=== PATIENT | male | born 1975 | race Caucasian/White ===

== ENCOUNTER 2019-11-13 12:16 | Inpatient (IN) | payer SELFPAY ==
[~2019-11-13] VITALS: Ht 172.7 cm; Wt 69.4 kg
[2019-11-13 13:20] LABS: Basophils # (auto) 0 uL; Basophils % (auto) 0.5 % (0.0-2.0); Eosinophils # (auto) 0 uL; Hematocrit 43.2 % (41.0-53.0); Hemoglobin 15.4 g/dL (13.5-17.5); Lymphocytes # (auto) 0.3 uL; Mean Corpuscular Hemoglobin 33.1 pg (28.0-32.0); Mean Corpuscular Hgb Conc. 35.6 g/dL (32.0-36.0); Monocytes # (auto) 0.5 uL; Monocytes % (auto) 10.5 % (0.0-12.0); Neutrophils # (auto) 3.8 uL; Nucleated Red Blood Cells % 0.3 %; Platelet Count (auto) 93 10^3/uL (140-450); Red Blood Cells 4.65 10^6/uL (4.5-5.90); Red Cell Distribution Width 12.8 % (11.8-14.3); White Blood Cell 4.6 10^3/uL (4.4-10.8)
[2019-11-13 13:33] LABS: Albumin 3.3 g/dL (3.4-5.0); Calcium 8.9 mg/dL (8.5-10.1)
[2019-11-13 13:36] LABS: BUN/Creatinine Ratio 8.8; Bilirubin, Total 1.1 mg/dL (0.2-1.0); Total Protein 8.2 g/dL (6.4-8.2)
[2019-11-13 13:47] LABS: Potassium 4.6 mmol/L (3.5-5.1)
[2019-11-13 14:59] LABS: Urine Bacteria NONE SEEN /hpf (None Seen); Urine Blood 1+ /uL (Negative); Urine Mucus FEW (None Seen); Urine Specific Gravity 1.026 (1.001-1.035); Urine WBC 2 /hpf (0 - 3)
[2019-11-13 15:00] LABS: Amphetamine Screen, Urine NEGATIVE (NEGATIVE); Barbiturate Scree,Urine NEGATIVE (NEGATIVE); Benzodiazephine Screen, Urine NEGATIVE (NEGATIVE); Cannabinoid Screen, Urine POSITIVE (NEGATIVE); Cocaine Screen, Urine NEGATIVE (NEGATIVE); Opiate Scree,Urine NEGATIVE (NEGATIVE)
[2019-11-13 15:08] LABS: Phencyclidine Screen, Urine NEGATIVE (NEGATIVE)
[2019-11-13] MEDS ORDERED: NEOMYCIN-BACITRACIN-POLYM UNITDOSE PKG TOP OINT TOP ONE (17:15)
[2019-11-13] MEDS ORDERED: ONDANSETRON HCL 4 MG/2 ML VIAL IV ONE (17:15)
[2019-11-13] MEDS ORDERED: LIDOCAINE 2%HCL (LOCAL ANESTH.) INJ 20ML MDV ID ONE (17:15)
[2019-11-13] MEDS ORDERED: IOHEXOL 300 MG/ML 100ML BOTTLE IJ ONE (17:28)
[2019-11-13 17:43] LABS: Magnesium 2.2 mg/dL (1.6-2.6)
[2019-11-13] MEDS ORDERED: FOLIC ACID 1 MG, MULTIPLE VITAMIN 10 ML, MAGNESIUM SULF SDV 50% 8 MEQ, THIAMINE INJ 100... INJ ONE ×5 (18:15)
[2019-11-13] MEDS ORDERED: LORazepam 2MG/ML-1ML VIAL IV ONE (18:45)
[2019-11-13] MEDS ORDERED: ACETAMINOPHEN 325 MG TAB PO ONE (22:00)
[2019-11-14] MEDS ORDERED: ACETAMINOPHEN 325 MG TAB PO ONE (04:15)
[2019-11-14] MEDS ORDERED: MORPHINE SULFATE 4 MG/ML SYR/VIAL IV PRN (04:30)
[2019-11-14] MEDS: SODIUM CHLORIDE 0.9% 1,000 ML IV SCH ×3 (05:09→15:11)
[2019-11-14] MEDS ORDERED: AZITHROMYCIN 500MG/ 250ML 250 ML IV ONE (05:15)
[2019-11-14 06:25] LABS: Basophils # (auto) 0 uL (0-0.2); Basophils % (auto) 0.4 % (0.0-2.0); Eosinophils # (auto) 0 uL (0-0.8); Hematocrit 38.1 % (41.0-53.0); Hemoglobin 13.5 g/dL (13.5-17.5); Lymphocytes # (auto) 0.4 uL (0.4-5.4); Mean Corpuscular Hgb Conc. 35.4 g/dL (32.0-36.0); Mean Corpuscular Volume 93.1 fL (80.0-100.0); Monocytes # (auto) 0.4 uL (0-1.3); Monocytes % (auto) 8.6 % (0.0-12.0); Neutrophils # (auto) 4.2 uL (1.6-8.6); Nucleated Red Blood Cells % 0.1 %; Platelet Count (auto) 69 10^3/uL (140-450); Red Blood Cells 4.09 10^6/uL (4.5-5.90); Red Cell Distribution Width 12.7 % (11.8-14.3); White Blood Cell 5.1 10^3/uL (4.4-10.8)
[2019-11-14 06:58] LABS: Calcium 7.9 mg/dL (8.5-10.1)
[2019-11-14 07:01] LABS: BUN/Creatinine Ratio 11.8
[2019-11-14 07:05] LABS: Potassium 2.9 mmol/L (3.5-5.1)
[2019-11-14] MEDS: POTASSIUM CHL 20MEQ/100ML 100 ML IV SCH ×3 (08:16→13:10)
[2019-11-14] MEDS: LORazepam 2MG/ML-1ML VIAL IV PRN ×6 (08:24→21:54)
[2019-11-14] MEDS ORDERED: cefTRIAXone 1GM/50ML D5W 50 ML IV SCH (10:00)
[2019-11-14] MEDS ORDERED: FOLIC ACID 1 MG, MULTIPLE VITAMIN 10 ML, MAGNESIUM SULF SDV 50% 8 MEQ, THIAMINE INJ 100... INJ SCH ×10 (12:00→12:45)
[2019-11-14] MEDS ORDERED: HALOPERIDOL LACTATE 5 MG/ML INJ VIAL IM ONE (12:15)
[2019-11-14] MEDS ORDERED: LORazepam 2MG/ML-1ML VIAL IV PRN ×2 (12:45→13:15)
[2019-11-14] MEDS ORDERED: LORazepam 2MG/ML-1ML VIAL IV SCH (13:00)
[2019-11-14] MEDS ORDERED: LORazepam 2MG/ML-1ML VIAL IV ONE (13:15)
[2019-11-14] MEDS ORDERED: THIAMINE 100mg/ml INJ (200mg/2ml VIAL) IV ONE (13:45)
[2019-11-14 15:04] LABS: Calcium 8.3 mg/dL (8.5-10.1); Potassium 3.8 mmol/L (3.5-5.1)
[2019-11-14] MEDS ORDERED: VANCOMYCIN PER PHARMACY 0 MG IV SCH (15:15)
[2019-11-14 15:58] LABS: Hepatitis B Surface Antigen Negative (Negative)
[2019-11-14 16:00] LABS: Hepatitis A Ab IgM Negative; Hepatitis B Core IgM Negative
[2019-11-14] MEDS ORDERED: FUROSEMIDE 40 MG/4 ML VIAL IV ONE (16:00)
[2019-11-14] MEDS: PIPERACILLIN-TAZO 4.5GM 100 ML IV SCH ×2 (16:18→21:54)
[2019-11-14] MEDS ORDERED: ACETAMINOPHEN 650 MG RECT SUPP PR ONE ×2 (16:27→16:30)
--- NOTE | 2019-11-14 16:56 | NUR ---
Pt Arrived on Unit Pt arrived on unit from ED. Pt is a/ox1-2; going through withdraws. Pt is visibly agitated. Girlfriend and pt's friend is currently at bedside. Sitter is present in room, salas catheter is present. Safety measures maintained with call light within reach, bed in lowest position and side rails up. Will continue to monitor.
[2019-11-14 17:15] VITALS: BP 140/78
--- NOTE | 2019-11-14 17:27 | NUR ---
Admission Due to pt's ALOC and withdraws, unable to obtain adequate information regarding history. Will endorse to NOC shift.
[2019-11-14] MEDS: chlordiazePOXIDE HCL 25 MG CAP PO SCH (17:52)
[2019-11-14 19:14] LABS: Creatinine, Urine 11.6 mg/dL (30.0-125.0)
--- NOTE | 2019-11-14 19:50 | NUR ---
Opening Shift Note Assumed care of patient is alert and orientated to self going through withdraws. Patient is seen pulling on iv line and salas. Educated patient to not pull on lines and reorientated patient. No S/S of distress/SOB or pain. sitter is at bedside. bed in low position and call light within reach. Instructed on POC and to call for assist PRN, will continue to monitor for changes Q1hr and PRN.
[2019-11-14] MEDS: VANCOMYCIN 1GM/250ML 250 ML IV SCH (20:35)
[2019-11-14 22:00] VITALS: BP 136/78
[2019-11-15] MEDS: chlordiazePOXIDE HCL 25 MG CAP PO SCH ×4 (00:53→17:56)
[2019-11-15] MEDS: LORazepam 2MG/ML-1ML VIAL IV PRN ×3 (00:58→06:13)
[2019-11-15 05:00] VITALS: BP 152/76
--- NOTE | 2019-11-15 05:00 | NUR ---
102.4 temperature. cooling measures initiated. 0606- rechecked temperature 98.2 temperature
[2019-11-15] MEDS: ACETAMINOPHEN 325 MG TAB PO PRN ×2 (05:11→11:20)
[2019-11-15] MEDS: VANCOMYCIN 1GM/250ML 250 ML IV SCH ×2 (05:38→16:10)
[2019-11-15] MEDS: PIPERACILLIN-TAZO 4.5GM 100 ML IV SCH ×3 (05:38→22:17)
--- NOTE | 2019-11-15 06:55 | NUR ---
REPORT GIVEN TO DAYSHIFT RN. PATIENT SHOWS NO SIGNS OF DISTRESS SOB OR PAIN. BED IN LOW POSITION CALL LIGHT WITHIN REACH. SITTER AT BEDSIDE.
--- NOTE | 2019-11-15 06:55 | NUR ---
REPORT GIVEN TO MATTHEW JARAMILLO
--- NOTE | 2019-11-15 07:19 | NUR ---
Opening Note Assumed pt care from NOC nurse. Pt is a/ox1-2; visibly going through withdraws and slightly agitated. Mittens are currently in place for pt safety and sitter is present in room. Fajardo catheter is present, draining to gravity and free of kinks. Discussed POC with pt. Safety measures maintained with call light within reach, bed in lowest position and side rails up. Will continue to monitor.
--- NOTE | 2019-11-15 08:49 | NUR ---
Elevated Temperature Reported Temp of 101.8. PRN Tylenol not available at this time. Provided cooling measures with ice packs under armpits, cool, damp cloth on forehead and temperature in room lowered. Will reassess and continue to monitor.
[2019-11-15 09:00] VITALS: BP 143/76
[2019-11-15 09:20] LABS: Basophils # (auto) 0 10 ^3/uL (0-0.2); Basophils % (auto) 0.6 % (0.0-2.0); Eosinophils # (auto) 0 10 ^3/uL (0-0.8); Hematocrit 45.2 % (41.0-53.0); Hemoglobin 15.5 g/dL (13.5-17.5); Lymphocytes # (auto) 0.7 10 ^3/uL (0.4-5.4); Lymphocytes % (auto) 13.3 % (10.0-50.0); Mean Corpuscular Hemoglobin 32.2 pg (28.0-32.0); Mean Corpuscular Hgb Conc. 34.2 g/dL (32.0-36.0); Mean Corpuscular Volume 94.1 fL (80.0-100.0); Monocytes # (auto) 0.5 10 ^3/uL (0-1.3); Monocytes % (auto) 8.5 % (0.0-12.0); Neutrophils # (auto) 4.2 10 ^3/uL (1.6-8.6); Neutrophils % (auto) 77.6 % (37.0-80.0); Nucleated Red Blood Cells % 0.1 %; Platelet Count (auto) 84 10^3/uL (140-450); Red Cell Distribution Width 12.5 % (11.8-14.3); White Blood Cell 5.4 10^3/uL (4.4-10.8)
[2019-11-15 09:39] LABS: Calcium 8.3 mg/dL (8.5-10.1)
[2019-11-15 09:43] LABS: Bilirubin, Total 0.9 mg/dL (0.2-1.0); Total Protein 7.4 g/dL (6.4-8.2)
[2019-11-15 09:45] LABS: Potassium 2.9 mmol/L (3.5-5.1)
[2019-11-15] MEDS: THIAMINE 100mg/ml INJ (200mg/2ml VIAL) IV SCH (09:55)
--- NOTE | 2019-11-15 10:01 | NUR ---
Critical Lab Value Reported Potassium of 2.9 reported. Will notify MD of critical lab value and continue to monitor. Addendum: 11/15/19 at 1035 by JULIANA CURIEL RN RN Dr Wiggins made aware. Will continue to monitor.
[2019-11-15] MEDS ORDERED: POTASSIUM EFFERVESENT TAB 25 MEQ PO ONE (11:00)
[2019-11-15] MEDS ORDERED: ACETAMINOPHEN 325 MG TAB PO ONE (11:15)
--- NOTE | 2019-11-15 12:47 | NUR ---
Dr Wiggins at Bedside MD to see pt. MD requests that we withhold haldol and ativan for pt at this time. No new orders at this time. Will continue to monitor.
[2019-11-15 13:00] VITALS: BP 114/71
[2019-11-15] MEDS ORDERED: POTASSIUM CHL 20 Meq TABLET PO ONE (13:00)
--- NOTE | 2019-11-15 14:10 | NUR ---
[facility] notified. Per staff, will send up antibiotic.
[2019-11-15] MEDS ORDERED: levoFLOXacin 250 MG TAB PO ONE (16:30)
[2019-11-15 17:00] VITALS: BP 125/80
--- NOTE | 2019-11-15 19:30 | NUR ---
Opening Shift Note Assumed care of patient, awake and alert. No S/S of distress/SOB. Sitter at bedside. Instructed on POC and to call for assist PRN, will continue to monitor for changes Q1hr and PRN.
[2019-11-15 22:15] VITALS: BP 113/61
[2019-11-16 02:33] LABS: BUN/Creatinine Ratio 15.9; Calcium 8.7 mg/dL (8.5-10.1); Potassium 3.7 mmol/L (3.5-5.1)
[2019-11-16] MEDS: VANCOMYCIN 1GM/250ML 250 ML IV SCH ×3 (03:18→17:41)
[2019-11-16 05:23] VITALS: BP 106/69
[2019-11-16] MEDS: PIPERACILLIN-TAZO 4.5GM 100 ML IV SCH ×3 (06:09→22:00)
[2019-11-16] MEDS: chlordiazePOXIDE HCL 25 MG CAP PO SCH ×4 (06:10→17:41)
[2019-11-16 06:17] LABS: Basophils # (auto) 0 10 ^3/uL (0-0.2); Basophils % (auto) 0.7 % (0.0-2.0); Eosinophils # (auto) 0 10 ^3/uL (0-0.8); Eosinophils % (auto) 0.4 % (0.0-7.0); Hematocrit 43.2 % (41.0-53.0); Hemoglobin 15.3 g/dL (13.5-17.5); Lymphocytes # (auto) 0.8 10 ^3/uL (0.4-5.4); Lymphocytes % (auto) 16.6 % (10.0-50.0); Mean Corpuscular Hemoglobin 33.1 pg (28.0-32.0); Mean Corpuscular Hgb Conc. 35.5 g/dL (32.0-36.0); Mean Corpuscular Volume 93.2 fL (80.0-100.0); Monocytes # (auto) 0.6 10 ^3/uL (0-1.3); Neutrophils # (auto) 3.2 10 ^3/uL (1.6-8.6); Neutrophils % (auto) 69.3 % (37.0-80.0); Nucleated Red Blood Cells % 0.2 %; Platelet Count (auto) 90 10^3/uL (140-450); Red Blood Cells 4.63 10^6/uL (4.5-5.90); Red Cell Distribution Width 12.7 % (11.8-14.3); White Blood Cell 4.7 10^3/uL (4.4-10.8)
[2019-11-16 06:19] LABS: Calcium 8.4 mg/dL (8.5-10.1); Potassium 3.4 mmol/L (3.5-5.1)
[2019-11-16 06:21] LABS: BUN/Creatinine Ratio 16.2
--- NOTE | 2019-11-16 07:23 | NUR ---
Opening Note Assumed pt care form NOC nurse. Pt is a/ox3-4 with no s/s of distress or SOB. Mild periods of confusion noted at times. Pt is currently sitting upright in bed with no complaints at this time. Sitter is present at bedside. Fajardo is present, free of kinks and draining to gravity. Discussed POC with pt, pt verbalized understanding. Safety measures maintained with call light within reach, bed in lowest position and side rails up. Will continue to monitor for changes.
[2019-11-16 09:00] VITALS: BP 109/72
[2019-11-16] MEDS: THIAMINE 100mg/ml INJ (200mg/2ml VIAL) IV SCH (10:00)
[2019-11-16] MEDS: levoFLOXacin 250 MG TAB PO SCH (10:00)
--- NOTE | 2019-11-16 12:01 | NUR ---
Salas Catheter D/C'ed Salas catheter removed due to pt being able to ambulate without difficulty and shows no s/s of ALOC. Pt expressed that he feels he can void on his own. Catheter removed without issue. Pt provided urinal and I requested that pt call when need assistance ot restroom; pt verbalized understanding. 500 mL of urine present in salas after d/c. Addendum: 11/16/19 at 1258 by JULIANA CURIEL RN RN Pt able to ambulate to bathroom and urinate. Will continue to monitor.
--- NOTE | 2019-11-16 12:48 | NUR ---
Dr Wiggins at Bedside MD to see pt. Discussed POC with pt and pt's girlfriend. Orders given, read back and verified. Will continue to monitor.
--- NOTE | 2019-11-16 12:48 | NUR ---
Per terri Barksdale MD to d/c Vanco IV antibiotics if MRSA comes back negative. Will send specimen to lab.
[2019-11-16 12:52] VITALS: BP 111/74
[2019-11-16] MEDS: ACETAMINOPHEN 325 MG TAB PO PRN (15:24)
--- NOTE | 2019-11-16 17:05 | NUR ---
AMA to Smoke Pt expressed strong desire to go down stairs to smoke. Discussed with pt the harms of smoking and provided pt with information with education on smoking and his diagnosis. Pt aware of the risks of smoking and his current condition. I read the pt that AMA to smoke form; pt willingly signed the form. Pt able to ambulate without difficulty. Pt currently off unit to smoke. Pt aware to be back within 30 minutes. Will continue to monitor. Addendum: 11/16/19 at 1708 by JULIANA CURIEL RN RN Signed AMA to smoke placed in chart. Addendum: 11/16/19 at 1722 by JULIANA CURIEL RN RN Pt Back on unit
--- NOTE | 2019-11-16 19:30 | NUR ---
Opening Shift Note Assumed care of patient, awake and alert. No S/S of distress/SOB or pain. Sitter at bedside. Instructed on POC and to call for assist PRN, will continue to monitor for changes Q1hr and PRN.
[2019-11-16] MEDS ORDERED: VANCOMYCIN PER PHARMACY 0 MG IV SCH (19:45)
[2019-11-16 21:59] VITALS: BP 112/77
[2019-11-17] VITALS: BP 110/79
[2019-11-17] MEDS: chlordiazePOXIDE HCL 25 MG CAP PO SCH ×4 (00:21→17:37)
[2019-11-17] MEDS: VANCOMYCIN 1GM/250ML 250 ML IV SCH ×2 (02:18→10:38)
[2019-11-17 04:10] VITALS: BP 106/79
[2019-11-17 05:59] LABS: BUN/Creatinine Ratio 12.5; Calcium 8.6 mg/dL (8.5-10.1); Potassium 3.4 mmol/L (3.5-5.1)
[2019-11-17] MEDS: PIPERACILLIN-TAZO 4.5GM 100 ML IV SCH (06:00)
[2019-11-17 06:03] LABS: Albumin 2.7 g/dL (3.4-5.0)
[2019-11-17 09:00] VITALS: BP 114/66
[2019-11-17] MEDS ORDERED: POTASSIUM EFFERVESENT TAB 25 MEQ PO ONE (09:00)
[2019-11-17] MEDS ORDERED: POTASSIUM CHL 20 Meq TABLET PO ONE ×2 (09:00→17:30)
[2019-11-17] MEDS: levoFLOXacin 250 MG TAB PO SCH (10:38)
[2019-11-17] MEDS: THIAMINE 100mg/ml INJ (200mg/2ml VIAL) IV SCH (10:38)
[2019-11-17] MEDS: MORPHINE SULF INJ 2 MG/ML SYRINGE 1ML IV PRN (10:56)
[2019-11-17 13:00] VITALS: BP 120/84
[2019-11-17] MEDS ORDERED: NICOTINE 21MG/24 HR TOPICAL PATCH TD ONE (16:15)
[2019-11-17 16:24] VITALS: BP 121/79
[2019-11-17] MEDS ORDERED: FUROSEMIDE 20 MG/2 ML VIAL IV ONE (17:30)
--- NOTE | 2019-11-17 17:30 | NUR ---
assessment Patient is a 44 year old male who is confused. 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 Per patients bedside nurse patient lives home with family and functions with assistance. I have called patients sig other Marla [phone] and left a message for her to return my call. Waiting second miller back now. Addendum: 11/17/19 at 1732 by Asya MAURICE Amended: Links added.
--- NOTE | 2019-11-17 19:30 | NUR ---
Opening Shift Note Assumed care of patient, awake and alert. No S/S of distress/SOB or pain. Instructed on POC and to call for assist PRN, will continue to monitor for changes Q1hr and PRN.
[2019-11-17] MEDS: ACETAMINOPHEN 325 MG TAB PO PRN (21:45)
[2019-11-17 22:00] VITALS: BP 138/75
[2019-11-18] MEDS: chlordiazePOXIDE HCL 25 MG CAP PO SCH ×2 (00:06→06:13)
[2019-11-18 06:06] VITALS: BP 127/79
[2019-11-18 06:24] LABS: Calcium 9.4 mg/dL (8.5-10.1); Potassium 4.3 mmol/L (3.5-5.1)
[2019-11-18] MEDS: MORPHINE SULF INJ 2 MG/ML SYRINGE 1ML IV PRN ×3 (06:25→18:45)
[2019-11-18] MEDS: ONDANSETRON HCL 4 MG/2 ML VIAL IV PRN ×2 (06:25→10:45)
[2019-11-18 06:27] LABS: BUN/Creatinine Ratio 9.1
[2019-11-18] MEDS ORDERED: SODIUM CHLORIDE 0.9% 1,000 ML IV ONE (08:45)
[2019-11-18 09:00] VITALS: BP 115/78
[2019-11-18] MEDS ORDERED: SODIUM CHLORIDE 0.9% 500 ML IV ONE (09:00)
[2019-11-18] MEDS: levoFLOXacin 250 MG TAB PO SCH (10:17)
[2019-11-18] MEDS: NICOTINE 21MG/24 HR TOPICAL PATCH TD SCH (10:19)
[2019-11-18] MEDS: THIAMINE 100mg/ml INJ (200mg/2ml VIAL) IV SCH (10:20)
[2019-11-18 12:39] LABS: Albumin 2.6 g/dL (3.4-5.0); BUN/Creatinine Ratio 10.6; Potassium 4.4 mmol/L (3.5-5.1)
[2019-11-18 12:41] LABS: Bilirubin, Total 0.9 mg/dL (0.2-1.0); Total Protein 7.1 g/dL (6.4-8.2)
[2019-11-18 13:21] VITALS: BP 129/75
[2019-11-18 13:32] LABS: Hematocrit 41.6 % (41.0-53.0); Hemoglobin 14.3 g/dL (13.5-17.5); Mean Corpuscular Hemoglobin 32.6 pg (28.0-32.0); Mean Corpuscular Hgb Conc. 34.3 g/dL (32.0-36.0); Mean Corpuscular Volume 94.9 fL (80.0-100.0); Platelet Count (auto) 202 10^3/uL (140-450); Red Blood Cells 4.38 10^6/uL (4.5-5.90); Red Cell Distribution Width 13.2 % (11.8-14.3); White Blood Cell 7.4 10^3/uL (4.4-10.8)
[2019-11-18 13:37] LABS: Band Neutrophils % (manual) 0; Basophils % (manual) 0 (0.0-2.0); Blast Cells 0; Metamyelocytes % 0; Myelocytes % 0; Promyelocytes % 0; Reactive Lymphocytes 0
[2019-11-18 14:00] LABS: Eosinophils % (manual) 1 (0-7); Lymphocytes % (manual) 15 (10.0-50.0); Monocytes % (manual) 16 (0-12)
--- NOTE | 2019-11-18 15:25 | NUR ---
NUTRITION ASSESSMENT NOTES Please refer to link notes of nutrition screen form filed under the intervention section of the plan of care for further details. Est. Needs: 1700 kcal to 1950 kcal (25-30 kcal/kgBW), 55 gms to 69 gms pro (0.8-1.0 gms/kgBW). Will continue to monitor pertinent labs and reassess nutrient needs prn Thank you. Addendum: 11/18/19 at [address] Amended: Links added.
[2019-11-18 17:00] VITALS: BP 127/72
[2019-11-18] MEDS: PANTOPRAZOLE 40 MG TAB PO SCH (17:13)
[2019-11-18 19:11] LABS: Albumin 2.9 g/dL (3.4-5.0); Calcium 9.5 mg/dL (8.5-10.1); Potassium 4.5 mmol/L (3.5-5.1)
[2019-11-18 19:15] LABS: BUN/Creatinine Ratio 9.6; Bilirubin, Total 1.1 mg/dL (0.2-1.0)
--- NOTE | 2019-11-18 19:15 | NUR ---
ASSUMED CARE, PT. AWAKE, NO C/O PAIN, NO SOB.
[2019-11-18 19:39] LABS: Protein, Urine 38.1 mg/dL (0.0-11.9)
[2019-11-18 19:44] LABS: Urine Bacteria NONE SEEN /hpf (None Seen); Urine Blood 1+ /uL (Negative); Urine Specific Gravity 1.009 (1.001-1.035); Urine WBC 2 /hpf (0 - 3)
[2019-11-18 22:00] VITALS: BP 108/76
[2019-11-19] MEDS: MORPHINE SULF INJ 2 MG/ML SYRINGE 1ML IV PRN ×4 (02:50→20:28)
--- NOTE | 2019-11-19 02:50 | NUR ---
pt. c/o generalized pain, 06/23, morphine 2mg. iv given s ordered.
--- NOTE | 2019-11-19 03:32 | NUR ---
no c/o pain at this time.
[2019-11-19 05:30] VITALS: BP 137/81
[2019-11-19 07:16] LABS: INR 1.05 (0.9-1.15)
[2019-11-19 07:20] LABS: Amylase 168 U/L (25-115); Lipase 1000 U/L (73-393)
[2019-11-19 09:00] VITALS: BP 133/85
[2019-11-19] MEDS: levoFLOXacin 250 MG TAB PO SCH (09:45)
[2019-11-19] MEDS: PANTOPRAZOLE 40 MG TAB PO SCH (09:46)
[2019-11-19] MEDS: THIAMINE 100mg/ml INJ (200mg/2ml VIAL) IV SCH (09:47)
[2019-11-19] MEDS: NICOTINE 21MG/24 HR TOPICAL PATCH TD SCH (09:55)
[2019-11-19 10:26] LABS: Albumin 2.6 g/dL (3.4-5.0); Calcium 8.8 mg/dL (8.5-10.1); Potassium 4.5 mmol/L (3.5-5.1)
[2019-11-19 10:30] LABS: BUN/Creatinine Ratio 10.3; Total Protein 7.1 g/dL (6.4-8.2)
[2019-11-19 13:00] VITALS: BP 137/83
--- NOTE | 2019-11-19 16:43 | NUR ---
PAIN MEDICATION REQUEST PATIENT REQUESTED PAIN MEDICATION AT PAIN SCALE OF 0-10/8. MORPHINE 2MG/ML WOULD NOT BE AVAILABLE FOR ADMINISTRATION FOR ANOTHER 2 HOURS FROM CURRENT TIME. ACETAMINOPHEN 325MG/2 TABS IS AVAILABLE AND PATIENT ACCEPTED PAIN MEDICATION RELIEF AT THE LOWER RELIEF SCALE.
[2019-11-19] MEDS: ACETAMINOPHEN 325 MG TAB PO PRN (16:47)
[2019-11-19 17:00] VITALS: BP 133/69
--- NOTE | 2019-11-19 19:00 | NUR ---
Opening Shift Note Assumed care of patient, awake and alert. No S/S of distress/SOB, patient states that he has pain from his sciatic nerve down his left leg. Reports a pain of 7/10, will give pain medications PRN as due, will continue to monitor. Instructed on POC and to call for assist PRN, will continue to monitor for changes Q1hr and PRN. Pt in lowest possible position with bed rails up x2 and call light within reach.
[2019-11-19 20:00] VITALS: BP 132/84
[2019-11-19 21:00] VITALS: BP_SYST 123; BP_SYST 132; BP_DIAS 78; BP_DIAS 84
[2019-11-20] MEDS: MORPHINE SULF INJ 2 MG/ML SYRINGE 1ML IV PRN ×3 (00:34→10:24)
[2019-11-20 04:30] VITALS: BP 114/66
[2019-11-20 07:35] LABS: Albumin 2.5 g/dL (3.4-5.0); Calcium 9.1 mg/dL (8.5-10.1); Potassium 4.4 mmol/L (3.5-5.1)
[2019-11-20 07:40] LABS: BUN/Creatinine Ratio 11.5; Bilirubin, Total 0.9 mg/dL (0.2-1.0); Total Protein 7.6 g/dL (6.4-8.2)
[2019-11-20 08:00] VITALS: BP 121/79
[2019-11-20 09:00] VITALS: BP 120/81
[2019-11-20] MEDS ORDERED: THIAMINE HCL 100 MG TAB PO SCH (10:00)
[2019-11-20] MEDS ORDERED: FOLIC ACID 1 MG TAB PO SCH (10:00)
[2019-11-20] MEDS: PANTOPRAZOLE 40 MG TAB PO SCH (10:26)
[2019-11-20] MEDS: levoFLOXacin 250 MG TAB PO SCH (10:26)
[2019-11-20] MEDS ORDERED: DOXY-286 PO (10:31)
[2019-11-20] MEDS: NICOTINE 21MG/24 HR TOPICAL PATCH TD SCH (10:39)
[2019-11-20 10:49] VITALS: BP 114/66
--- NOTE | 2019-11-20 13:45 | NUR ---
Discharge instructions given as ordered. Encourage to follow up with PMD as instructed. All questions and concerns addressed. Patient verbalized understanding. Medication reconciliation form completed and copy given to patient. IV removed with catheter intact, pressure dressing applied. Patient taken to vehicle via wheelchair with all personal belongings, accompanied by staff and family member. No distress noted at time of departure. Sutures intact to above right eyebrow. Area clean, dry and intact with no redness, swelling or drainage. Area open to air.
== END 2019-11-20 13:45 | disposition home or self-care (01) | DRG 720 ==
LOC: EDBD 12:16 → ER 12:20 → TELE 12:21 → TELE-CENTR 11-14 16:50 → CENTRAL 11-19 10:10
PROVIDERS: ADMIT Hospitalist; ATTEND Internal Medicine Nephrology
DX: A41.9 Sepsis, unspecified organism (principal); N17.0 Acute kidney failure with tubular necrosis; K85.90 Acute pancreatitis without necrosis or infection, unspecified; E22.2 Syndrome of inappropriate secretion of antidiuretic hormone; J18.9 Pneumonia, unspecified organism; K70.10 Alcoholic hepatitis without ascites; K76.0 Fatty (change of) liver, not elsewhere classified; F10.239 Alcohol dependence with withdrawal, unspecified; E44.1 Mild protein-calorie malnutrition; E87.6 Hypokalemia; E86.0 Dehydration; F12.90 Cannabis use, unspecified, uncomplicated; F17.210 Nicotine dependence, cigarettes, uncomplicated; R73.9 Hyperglycemia, unspecified; R80.9 Proteinuria, unspecified; I10 Essential (primary) hypertension; S01.111A Laceration without foreign body of right eyelid and periocular area, initial encounter; X58.XXXA Exposure to other specified factors, initial encounter; Y93.89 Activity, other specified; Y92.89 Other specified places as the place of occurrence of the external cause; Y99.8 Other external cause status
CPT/HCPCS: 12013; 36415; 70450; 71045; 71250; 74177; 76775; 80048; 80053; 80061; 80202; 80307; 81001; 82150; 82570; 82607; 83036; 83605; 83690; 83735; 83930; 83935; 84156; 84300; 84443; 84550; 85007; 85025; 85027; 85610; 86703; 86705; 86709; 86803; 87040; 87070; 87081; 87086; 87205; 87340; 87804; 96361; 96365; 96375; G0378; J0696; J2405; J2543; J3480

== ENCOUNTER → 2019-12-01 | Outpatient (CLI) | payer SELFPAY ==
[~2019-12-01] MED LIST: DOXY-286 PO
[2019-12-01 08:06] LABS: Albumin 3.5 g/dL (3.4-5.0); BUN/Creatinine Ratio 9.8; Calcium 10.2 mg/dL (8.5-10.1); Potassium 4.5 mmol/L (3.5-5.1)
[2019-12-01 08:08] LABS: Bilirubin, Total 0.5 mg/dL (0.2-1.0); Total Protein 8.6 g/dL (6.4-8.2)
== END | disposition home or self-care (01) ==
LOC: LAB 07:09
PROVIDERS: ATTEND Internal Medicine
DX: N17.0 Acute kidney failure with tubular necrosis (principal); J18.9 Pneumonia, unspecified organism
CPT/HCPCS: 36415; 80053

== ENCOUNTER → 2019-12-13 | Outpatient (CLI) | payer MEDICAID ==
[2019-12-13 08:14] LABS: Albumin 3.6 g/dL (3.4-5.0); Calcium 9.4 mg/dL (8.5-10.1); Potassium 4.1 mmol/L (3.5-5.1)
[2019-12-13 08:19] LABS: BUN/Creatinine Ratio 6.6; Bilirubin, Total 0.4 mg/dL (0.2-1.0)
== END | disposition home or self-care (01) ==
LOC: LAB 07:06
PROVIDERS: ATTEND Internal Medicine
DX: N18.2 Chronic kidney disease, stage 2 (mild) (principal); R73.03 Prediabetes
CPT/HCPCS: 36415; 80053; 82150; 83690

== ENCOUNTER → 2020-10-17 | Outpatient (CLI) | payer MEDICAID ==
[2020-10-17 09:39] LABS: Neutrophils # (auto) 4.5 10 ^3/uL (1.6-8.6)
[2020-10-17 09:41] LABS: Basophils # (auto) 0.2 10 ^3/uL (0-0.2); Basophils % (auto) 2.1 % (0.0-2.0); Eosinophils # (auto) 0.4 10 ^3/uL (0-0.8); Hematocrit 47.9 % (41.0-53.0); Hemoglobin 16.6 g/dL (13.5-17.5); Lymphocytes # (auto) 1.8 10 ^3/uL (0.4-5.4); Lymphocytes % (auto) 24.4 % (10.0-50.0); Mean Corpuscular Hemoglobin 33.6 pg (28.0-32.0); Mean Corpuscular Hgb Conc. 34.7 g/dL (32.0-36.0); Monocytes # (auto) 0.6 10 ^3/uL (0-1.3); Monocytes % (auto) 8.5 % (0.0-12.0); Nucleated Red Blood Cells % 0.2 %; Platelet Count (auto) 233 10^3/uL (140-450); Red Blood Cells 4.93 10^6/uL (4.5-5.90); Red Cell Distribution Width 14.7 % (11.8-14.3); White Blood Cell 7.5 10^3/uL (4.4-10.8)
[2020-10-17 10:08] LABS: Urine Bacteria NONE SEEN /hpf (None Seen); Urine Blood Negative /uL (Negative); Urine Specific Gravity 1.011 (1.001-1.035); Urine WBC 1 /hpf (0 - 3)
[2020-10-17 10:18] LABS: Potassium 4.6 mmol/L (3.5-5.1)
[2020-10-17 10:21] LABS: Amphetamine Screen, Urine NEGATIVE (NEGATIVE); Cannabinoid Screen, Urine POSITIVE (NEGATIVE)
[2020-10-17 10:29] LABS: Albumin 4.1 g/dL (3.4-5.0); BUN/Creatinine Ratio 9.7; Bilirubin, Total 0.8 mg/dL (0.2-1.0); Calcium 9.6 mg/dL (8.5-10.1); Total Protein 8.3 g/dL (6.4-8.2)
[2020-10-17 10:30] LABS: Barbiturate Scree,Urine NEGATIVE (NEGATIVE); Benzodiazephine Screen, Urine NEGATIVE (NEGATIVE); Cocaine Screen, Urine NEGATIVE (NEGATIVE); Opiate Scree,Urine NEGATIVE (NEGATIVE); Phencyclidine Screen, Urine NEGATIVE (NEGATIVE)
== END | disposition home or self-care (01) ==
LOC: LAB 09:12
PROVIDERS: ATTEND Internal Medicine
DX: K76.0 Fatty (change of) liver, not elsewhere classified (principal); F10.230 Alcohol dependence with withdrawal, uncomplicated; R73.03 Prediabetes
CPT/HCPCS: 36415; 80053; 80307; 81001; 83036; 84443; 85025

== ENCOUNTER → 2020-12-14 | Outpatient (CLI) | payer MEDICAID ==
[2020-12-14 08:50] LABS: Potassium 3.6 mmol/L (3.5-5.1)
[2020-12-14 08:52] LABS: Amphetamine Screen, Urine NEGATIVE (NEGATIVE); Barbiturate Scree,Urine NEGATIVE (NEGATIVE); Basophils # (auto) 0.1 10 ^3/uL (0-0.2); Cannabinoid Screen, Urine POSITIVE (NEGATIVE); Cocaine Screen, Urine NEGATIVE (NEGATIVE); Eosinophils # (auto) 0.1 10 ^3/uL (0-0.8); Hemoglobin 17.2 g/dL (13.5-17.5); Nucleated Red Blood Cells % 0.2 %; Red Blood Cells 5.05 10^6/uL (4.5-5.90)
[2020-12-14 09:00] LABS: Basophils % (auto) 1.7 % (0.0-2.0); Benzodiazephine Screen, Urine NEGATIVE (NEGATIVE); Eosinophils % (auto) 2.2 % (0.0-7.0); Hematocrit 47.8 % (41.0-53.0); Lymphocytes # (auto) 2.1 10 ^3/uL (0.4-5.4); Lymphocytes % (auto) 32.5 % (10.0-50.0); Mean Corpuscular Hemoglobin 34.1 pg (28.0-32.0); Mean Corpuscular Volume 94.7 fL (80.0-100.0); Monocytes # (auto) 0.5 10 ^3/uL (0-1.3); Neutrophils # (auto) 3.6 10 ^3/uL (1.6-8.6); Neutrophils % (auto) 55.6 % (37.0-80.0); Opiate Scree,Urine NEGATIVE (NEGATIVE); Phencyclidine Screen, Urine NEGATIVE (NEGATIVE); Platelet Count (auto) 156 10^3/uL (140-450); White Blood Cell 6.4 10^3/uL (4.4-10.8)
[2020-12-14 09:01] LABS: Albumin 3.7 g/dL (3.4-5.0); BUN/Creatinine Ratio 4.4; Calcium 9.1 mg/dL (8.5-10.1)
== END | disposition home or self-care (01) ==
LOC: LAB 07:49
PROVIDERS: ATTEND Internal Medicine
DX: F10.20 Alcohol dependence, uncomplicated (principal)
CPT/HCPCS: 36415; 80053; 80307; 82150; 83690; 85025

== ENCOUNTER → 2022-04-01 | Outpatient (CLI) | payer MEDICAID ==
[2022-04-01 13:56] LABS: Albumin 4.3 g/dL (3.4-5.0); Anion Gap 10 (5-15); Calcium 9.5 mg/dL (8.5-10.1); Carbon Dioxide 21 mmol/L (21-32); Chloride 105 mmol/L (98-107); Potassium 3.9 mmol/L (3.5-5.1); Sodium 136 mmol/L (136-145)
[2022-04-01 14:02] LABS: Alanine Aminotransferase 39 U/L (16-61); Alkaline Phosphatase 115 U/L (45-117); Aspartate Aminotransferase 26 U/L (15-37); BUN/Creatinine Ratio 11.8; Bilirubin, Total 0.8 mg/dL (0.2-1.0); Blood Urea Nitrogen 11 mg/dL (7-18); Cholesterol 248 mg/dL (< 200); GFR African American 112 mL/min; GFR Non-African American 93 mL/min; Glucose 118 mg/dL (74-106); HDL Cholesterol 38 mg/dL (40-59); Total Protein 8.3 g/dL (6.4-8.2); Triglycerides 433 mg/dL (< 150); Urine Bacteria NONE SEEN /hpf (None Seen); Urine Blood Negative /uL (Negative); Urine Specific Gravity 1.005 (1.001-1.035); Urine WBC <1 /hpf (0 - 3)
[2022-04-01 14:05] LABS: Folate (Folic Acid) 20.01 ng/mL (5.38-24)
[2022-04-01 14:07] LABS: Neutrophils % (auto) 63.5 % (37.0-80.0); White Blood Cell 11.5 10^3/uL (4.4-10.8)
[2022-04-01 14:08] LABS: Basophils # (auto) 0 10 ^3/uL (0-0.2); Basophils % (auto) 0.3 % (0.0-2.0); Eosinophils # (auto) 0.7 10 ^3/uL (0-0.8); Eosinophils % (auto) 5.7 % (0.0-7.0); Lymphocytes # (auto) 2.8 10 ^3/uL (0.4-5.4); Lymphocytes % (auto) 24.7 % (10.0-50.0); Monocytes # (auto) 0.7 10 ^3/uL (0-1.3); Monocytes % (auto) 5.8 % (0.0-12.0); Neutrophils # (auto) 7.3 10 ^3/uL (1.6-8.6); Nucleated Red Blood Cells % 0.2 %; Red Blood Cells 6.13 10^6/uL (4.5-5.90)
[2022-04-01 14:09] LABS: Hematocrit 55.3 % (41.0-53.0); Hemoglobin 18.1 g/dL (13.5-17.5); Mean Corpuscular Hemoglobin 29.5 pg (28.0-32.0); Mean Corpuscular Hgb Conc. 32.8 g/dL (32.0-36.0); Mean Corpuscular Volume 90.2 fL (80.0-100.0); Red Cell Distribution Width 14.9 % (11.8-14.3)
== END | disposition home or self-care (01) ==
LOC: LAB 13:02
PROVIDERS: ATTEND Internal Medicine
DX: R53.83 Other fatigue (principal); J44.9 Chronic obstructive pulmonary disease, unspecified; K76.0 Fatty (change of) liver, not elsewhere classified
CPT/HCPCS: 36415; 80053; 80061; 81001; 82607; 82746; 84443; 85025

== ENCOUNTER → 2022-04-08 | Outpatient (CLI) | payer MEDICAID | END | disposition home or self-care (01) | LOC: XYW 14:39 | PROVIDERS: ATTEND Internal Medicine | DX: R53.83 Other fatigue (principal); R53.1 Weakness | CPT/HCPCS: 93306 ==

== ENCOUNTER → 2022-05-23 | Outpatient (CLI) | payer MEDICAID ==
[2022-05-23 13:20] LABS: Basophils # (auto) 0.2 10 ^3/uL (0-0.2); Basophils % (auto) 1.3 % (0.0-2.0); Eosinophils # (auto) 0.4 10 ^3/uL (0-0.8); Eosinophils % (auto) 3.1 % (0.0-7.0); Hematocrit 51.3 % (41.0-53.0); Hemoglobin 17.2 g/dL (13.5-17.5); Lymphocytes # (auto) 3.2 10 ^3/uL (0.4-5.4); Lymphocytes % (auto) 24.8 % (10.0-50.0); Mean Corpuscular Hemoglobin 30.3 pg (28.0-32.0); Mean Corpuscular Hgb Conc. 33.5 g/dL (32.0-36.0); Mean Corpuscular Volume 90.3 fL (80.0-100.0); Monocytes # (auto) 0.7 10 ^3/uL (0-1.3); Monocytes % (auto) 5.4 % (0.0-12.0); Neutrophils # (auto) 8.4 10 ^3/uL (1.6-8.6); Neutrophils % (auto) 65.4 % (37.0-80.0); Red Blood Cells 5.68 10^6/uL (4.5-5.90); Red Cell Distribution Width 15.9 % (11.8-14.3); White Blood Cell 12.9 10^3/uL (4.4-10.8)
[2022-05-23 13:47] LABS: Cholesterol 289 mg/dL (< 200); HDL Cholesterol 45 mg/dL (40-59); Triglycerides 676 mg/dL (< 150)
== END | disposition home or self-care (01) ==
LOC: LAB 12:57
PROVIDERS: ATTEND Internal Medicine
DX: K76.0 Fatty (change of) liver, not elsewhere classified (principal); E78.5 Hyperlipidemia, unspecified
CPT/HCPCS: 36415; 80061; 84403; 85025

== ENCOUNTER → 2022-09-12 | Outpatient (CLI) | payer MEDICAID ==
[2022-09-12 07:26] LABS: Basophils # (auto) 0.1 10 ^3/uL (0-0.2); Basophils % (auto) 0.9 % (0.0-2.0); Eosinophils # (auto) 0.2 10 ^3/uL (0-0.8); Monocytes # (auto) 0.9 10 ^3/uL (0-1.3); Neutrophils # (auto) 5.4 10 ^3/uL (1.6-8.6); Nucleated Red Blood Cells % 0.1 %; White Blood Cell 9.8 10^3/uL (4.4-10.8)
[2022-09-12 07:30] LABS: Eosinophils % (auto) 1.9 % (0.0-7.0); Lymphocytes # (auto) 3.2 10 ^3/uL (0.4-5.4); Lymphocytes % (auto) 32.9 % (10.0-50.0); Mean Corpuscular Hemoglobin 34.4 pg (28.0-32.0); Mean Corpuscular Hgb Conc. 35.5 g/dL (32.0-36.0); Mean Corpuscular Volume 96.9 fL (80.0-100.0); Monocytes % (auto) 8.8 % (0.0-12.0); Neutrophils % (auto) 55.5 % (37.0-80.0); Red Blood Cells 5.81 10^6/uL (4.5-5.90); Red Cell Distribution Width 14.1 % (11.8-14.3)
[2022-09-12 07:32] LABS: Hematocrit 56.3 % (41.0-53.0)
[2022-09-12 07:51] LABS: Cholesterol 211 mg/dL (< 200); Triglycerides 216 mg/dL (< 150)
[2022-09-12 07:53] LABS: HDL Cholesterol 88 mg/dL (40-59); LDL Cholesterol 110 mg/dL (< 100)
== END | disposition home or self-care (01) ==
LOC: LAB 06:39
PROVIDERS: ATTEND Internal Medicine
DX: J44.9 Chronic obstructive pulmonary disease, unspecified (principal); E78.5 Hyperlipidemia, unspecified
CPT/HCPCS: 36415; 80061; 85025

== ENCOUNTER 2022-09-24 12:18 | Emergency (ER) | payer MEDICAID ==
[~2022-09-24] VITALS: Ht 172.7 cm; Wt 79.5 kg
[2022-09-24] MEDS ORDERED: LORazepam 2MG/ML-1ML VIAL IV ONE (12:45)
[2022-09-24] MEDS ORDERED: SODIUM CHLORIDE 0.9% 1,000 ML IV ONE (12:45)
[2022-09-24 13:26] LABS: Basophils # (auto) 0.1 10 ^3/uL (0-0.2); Basophils % (auto) 1.4 % (0.0-2.0); Eosinophils # (auto) 0 10 ^3/uL (0-0.8); Eosinophils % (auto) 0.5 % (0.0-7.0); Hematocrit 50.3 % (41.0-53.0); Hemoglobin 17.8 g/dL (13.5-17.5); Lymphocytes # (auto) 1.5 10 ^3/uL (0.4-5.4); Lymphocytes % (auto) 20.2 % (10.0-50.0); Mean Corpuscular Hemoglobin 34.1 pg (28.0-32.0); Mean Corpuscular Hgb Conc. 35.3 g/dL (32.0-36.0); Mean Corpuscular Volume 96.8 fL (80.0-100.0); Monocytes # (auto) 0.5 10 ^3/uL (0-1.3); Monocytes % (auto) 7.1 % (0.0-12.0); Neutrophils # (auto) 5.4 10 ^3/uL (1.6-8.6); Neutrophils % (auto) 70.8 % (37.0-80.0); Nucleated Red Blood Cells % 0.1 %; Red Cell Distribution Width 13.9 % (11.8-14.3); White Blood Cell 7.6 10^3/uL (4.4-10.8)
[2022-09-24 13:40] LABS: Potassium 4.6 mmol/L (3.5-5.1)
[2022-09-24 14:03] LABS: Albumin 4.3 g/dL (3.4-5.0); BUN/Creatinine Ratio 7.9; Bilirubin, Total 0.4 mg/dL (0.2-1.0); Total Protein 7.6 g/dL (6.4-8.2)
[2022-09-24] MEDS ORDERED: CHL25C PO (15:11)
[2022-09-24 15:36] LABS: Amphetamine Screen, Urine NEGATIVE (NEGATIVE); Barbiturate Scree,Urine NEGATIVE (NEGATIVE); Benzodiazephine Screen, Urine NEGATIVE (NEGATIVE); Cocaine Screen, Urine NEGATIVE (NEGATIVE); Opiate Scree,Urine NEGATIVE (NEGATIVE); Phencyclidine Screen, Urine NEGATIVE (NEGATIVE)
[2022-09-24 15:40] LABS: Cannabinoid Screen, Urine POSITIVE (NEGATIVE)
[2022-09-24 16:00] VITALS: BP 103/54
[2022-09-24 16:04] LABS: Urine Bacteria NONE SEEN /hpf (None Seen); Urine Blood Negative /uL (Negative); Urine Specific Gravity 1.003 (1.001-1.035); Urine WBC <1 /hpf (0 - 3)
== END 2022-09-24 16:44 | disposition home or self-care (01) ==
LOC: ER 12:18
DX: F10.239 Alcohol dependence with withdrawal, unspecified (principal); R42 Dizziness and giddiness; Z03.89 Encounter for observation for other suspected diseases and conditions ruled out; Y90.8 Blood alcohol level of 240 mg/100 ml or more
CPT/HCPCS: 36415; 80053; 80307; 80320; 81001; 83690; 85025; 93005; 96361; 96374; 99285; J2060; J7030

== ENCOUNTER → 2023-02-11 | Outpatient (CLI) | payer MEDICAID ==
[~2023-02-11] MED LIST changes: +CHL25C PO
[2023-02-11 07:15] LABS: Basophils # (auto) 0.1 10 ^3/uL (0-0.2); Eosinophils # (auto) 0.6 10 ^3/uL (0-0.8); Eosinophils % (auto) 7.7 % (0.0-7.0); Hematocrit 45.9 % (41.0-53.0); Lymphocytes # (auto) 2.9 10 ^3/uL (0.4-5.4); Lymphocytes % (auto) 37.2 % (10.0-50.0); Mean Corpuscular Hemoglobin 32.2 pg (28.0-32.0); Mean Corpuscular Hgb Conc. 34.9 g/dL (32.0-36.0); Mean Corpuscular Volume 92.1 fL (80.0-100.0); Monocytes # (auto) 0.5 10 ^3/uL (0-1.3); Monocytes % (auto) 5.8 % (0.0-12.0); Neutrophils # (auto) 3.7 10 ^3/uL (1.6-8.6); Neutrophils % (auto) 48.3 % (37.0-80.0); Nucleated Red Blood Cells % 0.5 %; Red Blood Cells 4.98 10^6/uL (4.5-5.90); Red Cell Distribution Width 14.6 % (11.8-14.3); White Blood Cell 7.7 10^3/uL (4.4-10.8)
[2023-02-11 07:37] LABS: Albumin 3.9 g/dL (3.4-5.0); Calcium 8.4 mg/dL (8.5-10.1)
[2023-02-11 07:41] LABS: Bilirubin, Total 0.4 mg/dL (0.2-1.0); Total Protein 7.5 g/dL (6.4-8.2)
[2023-02-11 07:42] LABS: Urine Bacteria NONE SEEN /hpf (None Seen); Urine Blood Negative /uL (Negative); Urine Specific Gravity 1.008 (1.001-1.035); Urine WBC <1 /hpf (0 - 3)
[2023-02-11 12:58] LABS: BUN/Creatinine Ratio 9.8 (10.0-20.0)
== END | disposition home or self-care (01) ==
LOC: LAB 06:31
PROVIDERS: ATTEND Internal Medicine
DX: E78.5 Hyperlipidemia, unspecified (principal); R10.9 Unspecified abdominal pain; F17.200 Nicotine dependence, unspecified, uncomplicated
CPT/HCPCS: 36415; 80053; 81001; 82550; 83036; 85025; 85652

== ENCOUNTER → 2024-01-13 | Outpatient (CLI) | payer MEDICAID ==
[2024-01-13 07:54] LABS: Triglycerides 217 mg/dL (< 150)
[2024-01-13 07:55] LABS: LDL Cholesterol 127 mg/dL (< 100)
[2024-01-13 07:56] LABS: Cholesterol 206 mg/dL (< 200); HDL Cholesterol 37 mg/dL (40-59)
== END | disposition home or self-care (01) ==
LOC: LAB 06:03
PROVIDERS: ATTEND Internal Medicine
DX: E78.5 Hyperlipidemia, unspecified (principal)
CPT/HCPCS: 36415; 80061

== ENCOUNTER → 2024-04-11 | Outpatient (CLI) | payer MEDICAID ==
[2024-04-11 07:33] LABS: Triglycerides 407 mg/dL (< 150)
[2024-04-11 07:34] LABS: Cholesterol 222 mg/dL (< 200); HDL Cholesterol 33 mg/dL (40-59)
== END | disposition home or self-care (01) ==
LOC: LAB 06:05
PROVIDERS: ATTEND Internal Medicine
DX: Z12.11 Encounter for screening for malignant neoplasm of colon (principal); E78.5 Hyperlipidemia, unspecified
CPT/HCPCS: 36415; 80061

== ENCOUNTER → 2024-07-28 | Outpatient (CLI) | payer MEDICAID ==
[2024-07-28 09:44] LABS: Erythrocyte Sedimentation Rate 19 mm/hr (0-20)
[2024-07-29 08:06] LABS: Complement C3 147 mg/dL (82-167); Rheumatoid Arthritis Factor <10.0 IU/mL (<14.0)
[2024-07-29 10:07] LABS: Anti-Nuclear Antibody Direct Negative (Negative); Anti-dsDNA Antibody 1 IU/mL (0-9); Antiscleroderma-70 Antibody <0.2 AI (0.0-0.9); RNP Antibody <0.2 AI (0.0-0.9); Sjogren's Anti-SS-A Antibody <0.2 AI (0.0-0.9); Sjogren's Anti-SS-B Antibody <0.2 AI (0.0-0.9); Smith Antibody <0.2 AI (0.0-0.9)
[2024-07-29 10:45] LABS: Thyroid Peroxidase (TPO) Ab <9 IU/mL (0-34)
== END | disposition home or self-care (01) ==
LOC: LAB 06:03
PROVIDERS: ATTEND Internal Medicine
DX: K76.0 Fatty (change of) liver, not elsewhere classified (principal); I70.90 Unspecified atherosclerosis
CPT/HCPCS: 36415; 84550; 85652; 86160; 86225; 86235; 86376; 86431

== ENCOUNTER 2025-04-25 06:03 | Outpatient (CLI) | payer MEDICAID ==
[2025-04-25 07:00] LABS: Triglycerides 425 mg/dL (< 150)
[2025-04-25 07:04] LABS: Cholesterol 235 mg/dL (< 200); HDL Cholesterol 30 mg/dL (40-59)
== END 2025-04-25 17:00 | disposition home or self-care (01) ==
LOC: LAB 06:03
PROVIDERS: ATTEND Internal Medicine
DX: E78.5 Hyperlipidemia, unspecified (principal); R73.03 Prediabetes; Z12.11 Encounter for screening for malignant neoplasm of colon; Z00.00 Encounter for general adult medical examination without abnormal findings
CPT/HCPCS: 36415; 80061; 82306; 82607; 83036

== ENCOUNTER 2025-07-20 06:04 | Outpatient (CLI) | payer MEDICAID ==
[2025-07-20 08:03] LABS: Calcium 9.9 mg/dL (8.7-10.4)
[2025-07-20 08:12] LABS: Cholesterol 213.0 mg/dL (< 200); HDL Cholesterol 34.0 mg/dL (40-59); Triglycerides 186.0 mg/dL (< 150)
== END 2025-07-20 17:00 | disposition home or self-care (01) ==
LOC: LAB 06:04
PROVIDERS: ATTEND Internal Medicine
DX: E78.5 Hyperlipidemia, unspecified (principal); R73.03 Prediabetes; Z12.11 Encounter for screening for malignant neoplasm of colon
CPT/HCPCS: 36415; 80061; 82306; 82310; 83970

== ENCOUNTER 2025-07-26 08:21 | Outpatient (CLI) | payer MEDICAID ==
[2025-07-26 09:32] LABS: Urine Protein, UAD Negative (Negative)
== END 2025-07-26 17:00 | disposition home or self-care (01) ==
LOC: LAB 08:21
PROVIDERS: ATTEND Internal Medicine
DX: E78.5 Hyperlipidemia, unspecified (principal); R73.03 Prediabetes; Z12.11 Encounter for screening for malignant neoplasm of colon
CPT/HCPCS: 36415; 81001; 82043; 82570